=== PATIENT | female | born 1965 | race Caucasian/White ===

== ENCOUNTER 2021-04-24 15:35 | Inpatient (IN) | payer BC ==
[~2021-04-24] VITALS: Ht 162.6 cm; Wt 94.5 kg
[2021-04-24] MEDS ORDERED: ATEN50 PO (15:47)
[2021-04-24] MEDS ORDERED: SPIRONOLACTONE50 MG PO (15:47)
[2021-04-24] MEDS ORDERED: ATOR40TA PO (15:49)
[2021-04-24] MEDS ORDERED: LISI10 PO (15:49)
[2021-04-24] MEDS ORDERED: SYNTHROID75 MCG PO (15:49)
[2021-04-24 18:20] LABS: International Normalized Ratio 0.96; Prothrombin Time Results 10.4 Sec (9.7-11.5)
--- NOTE | 2021-04-24 20:40 | NUR ---
CARE ASSUMPTION PT PREVIOUSLY ADMITTED TO PCU @ APPROX 1800. THIS RN ASSUMING CARE FROM DAY SHIFT RN @ APPROX 1900. PT A&O X4. VSS. SPO2 > 92% ON RA. MONITOR SHOWS SR, HR 60's. PT DENIES CP, STATING "IT'S NOT A CHEST PAIN, IT's A SLIGHT PRESSURE, BUT IT's NOT BAD. IT's ONLY BAD WHEN THE CONTRACTIONS COME. IT's LIKE CHILD , BUT IN MY CHEST." PT STATES SHE WILL NOTIFY STAFF IF CP OR "CONTRACTIONS" RETURN. HEPARIN GTT & NS GTT INFUSING PER ORDERS.
[2021-04-25 01:17] LABS: BASOPHILS ABSOLUTE AUTO 0.09 K/mm3 (0.00-0.23); BASOPHILS PERCENT AUTO 1 % (0-2); EOSINOPHILS ABSOLUTE AUTO 0.09 K/mm3 (0.00-0.68); EOSINOPHILS PERCENT AUTO 1 % (0-6); Hematocrit 34.6 % (33.0-51.0); Hemoglobin 11.9 g/dL (11.5-16.0); IMMATURE GRAN ABSOLUTE AUTO 0.06 K/mm3 (0.00-0.10); IMMATURE GRAN PERCENT AUTO 1 % (0-1); LYMPHOCYTES ABSOLUTE AUTO 3.54 K/mm3 (0.84-5.20); LYMPHOCYTES PERCENT AUTO 38 % (21-46); MONOCYTES PERCENT AUTO 10 % (4-13); Mean Corpuscular HGB 33.7 pg (26.0-34.0); Mean Corpuscular HGB Conc 34.4 g/dL (31.5-36.5); Mean Corpuscular Volume 98 fL (80-100); NEUTROPHILS ABSOLUTE AUTO 4.71 K/mm3 (1.96-9.15); NEUTROPHILS PERCENT AUTO 50 % (41-73); Platelet Count 186 K/mm3 (150-400); RDW Standard Deviation 43.7 fL (35.1-46.3); Red Blood Cell Count 3.53 M/mm3 (3.80-5.20); White Blood Cell Count 9.39 K/mm3 (4.00-11.30)
[2021-04-25 01:42] LABS: Alanine Aminotransfer (ALT/SGP 35 U/L (12-78); Albumin, Blood 2.9 g/dL (3.4-5.0); Albumin/Globulin Ratio 0.9 (0.8-1.8); Alk Phos 50 U/L (50-136); Anion Gap 5 mmol/L (6-16); Aspartate Aminotrans (AST/SGOT 23 U/L (12-37); Bilirubin, Total 0.5 mg/dL (0.1-1.0); Blood Urea Nitrogen 19 mg/dL (8-24); CO2, Blood 27 mmol/L (21-32); Calcium, Blood 8.5 mg/dL (8.5-10.1); Chloride, Blood 106 mmol/L (98-108); Creatinine, Blood 0.83 mg/dL (0.40-1.00); Globulin, Blood 3.2 g/dL (2.2-4.0); Glomerular Filtration Rate >60 (60-); Glucose, Blood 136 mg/dL (70-99); Potassium, Blood 3.8 mmol/L (3.5-5.5); Sodium, Blood 138 mmol/L (136-145); Total Protein, Blood 6.1 g/dL (6.4-8.2)
--- NOTE | 2021-04-25 06:18 | NUR ---
SHIFT SUMMARY PT CONTINUES TO BE A&O X4. VSS. SPO2 > 92% ON RA. MONITOR SHOWS SB-SR, HR 50's-60's. PT DENIES CP T/O THIS SHIFT. PT NPO, AWAITING CARDIOLOGY CONSULT. HEPARIN GTT & NS GTT INFUSING PER ORDERS.
--- NOTE | 2021-04-25 12:57 | NUR ---
PATIENT ARRIVED BACK FROM FIRST PORTION OF TESTING. NO FOOD OR DRINK, INFORMED PATIENT OF ABOVE, AND SHE WILL AWAIT FOR SECOND PORTION OF TESTING AT APPROXIMATELY 1430. NO CONCERNS OR QUESTIONS AT THIS TIME.
--- NOTE | 2021-04-25 16:00 | NUR ---
Update 04/25/21: Pt. contact [facility] [phone]. No home health previously. No DME on file. [facility] PCP Dr. Sanders. Echo complete 04/24/21. Dr. Matamoros ordered cardiology consult. Review of Dr. Vickers's notes - NM stress test ordered. Hospital course pending stress test results. Will begin discharge planning and care coordination when appropriate.
--- NOTE | 2021-04-25 18:50 | NUR ---
SHIFT SUMMARY: ASSUMED CARE OF PATIENT ON 04/25/2021 0700, PATIENT HAD PERFORMED A MYCARDIAL PERFUSION STUDY. PATIENT HAS BEEN INDEPENEDENT WITH TOILETING. DENIES WORSENING CHEST PAIN, RATE HER TIGHTNESS AT 1, HEPARIN TO BE DRAWN THIS PM FOR ADJUSTMENT. DR. PENA TO COME IN THE MORNING AND GO OVER RESULTS OF TEST.
--- NOTE | 2021-04-26 06:05 | NUR ---
SHIFT SUMMARY PT IS A+OX4, PLEASANT AND COOPERATIVE TO CARE. VSS THROUGHOUT EVENING. HR NSR 60'S AND BP STABLE. PT DENIES ANY CHEST PAIN OR PRESSURE. INDEPENDENT WITH ADLS. HEPARIN DRIP INFUSING THROUGH LEFT A/C. WILL CONTINUE TO MONITOR TILL REPORT GIVEN
--- NOTE | 2021-04-26 07:17 | NUR ---
NURSING PCU DAYSHIFT: Assumed care of pt at approx 0700. A/O, pleasant, cooperative w/care. Ambulates independently and w/o difficulty. Denies any general pain. Skin is intact w/no noted breakdown. Tele in place, NSR, c/o mild chest pressure that does not worsen w/deep inspiration, SBP 140's, trace BLE edema. L/S cta t/o, O2 sat upper 90's on RA, denies dyspnea, no noted cough. Abd SNT, BT+, voiding w/o difficulty per pt. PIV x1 w/hep gtt infusing at 22.7 mls/hr (16u/kg/hr). Pt awaiting rounding from processor [employer]ellant and PMD. Expresses concern about events/testing resulting in hospitalization and what further plan of care will be. Denies any current needs or questions from primary staff. NPO at this time until seen by processor [employer]. Call light in reach, cont to monitor for changes.
--- NOTE | 2021-04-26 09:54 | NUR ---
[place] of care Received report from charge, RN Pt is a/o x 4 and sitting up in the chair in her room. Fresh water was brought in to the patient. Heparin gtt is running as ordered. Cardio is following the patient. Possible angio today, awaiting plan from the doctor. Pt is able to make her needs known and has her call light in reach.
[2021-04-26] MEDS ORDERED: METO50ER PO (15:22)
[2021-04-26] MEDS ORDERED: ST. JOSEPH ASPI81 MG PO (15:23)
--- NOTE | 2021-04-26 15:45 | NUR ---
Pt has been dcd home with her . Cardio came to see the patient as well as the hospitalist who put in th eorders for DC. Her meds were called into her pharmacy on file by the charge nurse. All meds and instructions were reviewed with the pt and all questions were answered. Pt was stable upon DC and has all of her personal belongings. [place] patient liason met with her and gave her her follow up information.
--- NOTE | 2021-04-27 17:29 | NUR ---
Update 04/26/21: Per chart review with Dr. Matamoros, pt. appropriate for discharge today. Reviewed discharge planning with pt. Denied concerns with safety or barriers to care at home. Pt. lives with who will be providing transportation and picking up medications. Denied any additional needs. Scheduled for hospital F/U on 05/02/21 at 11am with Lorrie LEARY. No further needs at this time.
== END 2021-04-26 15:43 | disposition home or self-care (01) | DRG 282 ==
LOC: ER 15:35 → PCU 17:14
PROVIDERS: ADMIT Internal Medicine
DX: I21.4 Non-ST elevation (NSTEMI) myocardial infarction (principal); I10 Essential (primary) hypertension; E78.5 Hyperlipidemia, unspecified; E66.01 Morbid (severe) obesity due to excess calories; E03.9 Hypothyroidism, unspecified; Z79.899 Other long term (current) drug therapy; R73.9 Hyperglycemia, unspecified; Z68.34 Body mass index [BMI] 34.0-34.9, adult
CPT/HCPCS: 36415; 78452; 80053; 83036; 83690; 84443; 84484; 85025; 85379; 85610; 85730; 93005; 93010; 93017; 93306; 99285; A9270; A9500; J0280; J1644; J2785; J7030

== ENCOUNTER 2021-11-06 12:49 | Day surgery (SDC) | payer BC ==
[~2021-11-06] VITALS: Ht 162.6 cm; Wt 90.6 kg
[~2021-11-06 12:49] MED LIST: ATEN50 PO; ATOR40TA PO; LISI10 PO; METO50ER PO; SPIRONOLACTONE50 MG PO; ST. JOSEPH ASPI81 MG PO; SYNTHROID75 MCG PO
[2021-11-06] MEDS ORDERED: Amlodipine Bes2.5 MG (13:18)
[2021-11-06] MEDS ORDERED: ATOR10 (13:26)
== END 2021-11-06 15:22 | disposition home or self-care (01) ==
LOC: ORSCSDS 12:49
PROVIDERS: Student in an Organized Health Care Education/Training Program
PROC: 0DBM8ZX Excision of Descending Colon, Via Natural or Artificial Opening Endoscopic, Diagnostic (ICD-10-PCS; principal; 2021-11-06 14:15)
PROC: 0DBN8ZX Excision of Sigmoid Colon, Via Natural or Artificial Opening Endoscopic, Diagnostic (ICD-10-PCS; principal; 2021-11-06 14:15)
PROC: 0DBL8ZX Excision of Transverse Colon, Via Natural or Artificial Opening Endoscopic, Diagnostic (ICD-10-PCS; principal; 2021-11-06 14:15)
DX: Z12.11 Encounter for screening for malignant neoplasm of colon (principal); Z86.010 Personal history of colon polyps; D12.3 Benign neoplasm of transverse colon; D12.4 Benign neoplasm of descending colon; D12.5 Benign neoplasm of sigmoid colon; I10 Essential (primary) hypertension; E78.5 Hyperlipidemia, unspecified; E03.9 Hypothyroidism, unspecified; Z87.891 Personal history of nicotine dependence; Z79.899 Other long term (current) drug therapy
CPT/HCPCS: 88305; J0330; J0461; J2405; J2704; J7120

== ENCOUNTER → 2022-11-08 | Outpatient (CLI) | payer BC ==
[~2022-11-08] MED LIST changes: +ATOR10; +Amlodipine Bes2.5 MG
[2022-11-13 15:11] LABS: HPV 16 Negative (Negative); HPV 18 Negative (Negative); HPV OTHER HR TYPES Negative (Negative)
== END ==
LOC: RAD SHORT 09:26
PROVIDERS: Family Medicine
DX: Z01.419 Encounter for gynecological examination (general) (routine) without abnormal findings (principal)
CPT/HCPCS: 87624; G0145

== ENCOUNTER 2023-04-02 07:10 | Day surgery (SDC) | payer BC ==
[~2023-04-02] VITALS: Ht 162.6 cm; Wt 87.2 kg
[2023-04-02] MEDS ORDERED: ATOR40TA PO (07:41)
[2023-04-02] MEDS ORDERED: LISI20 (07:42)
[2023-04-02] MEDS ORDERED: AMLODIPINE BESYL5 MG PO (07:44)
--- NOTE | 2023-04-02 07:53 | NUR ---
04/02/23 0753 Ximena Quezada 0737 1 DROP OF TETRACAINE ADMINISTERED TO THE R EYE, 0738 PLEDGET PLACED IN R EYE. PT TOLERATED WELL.
[2023-04-02 09:14] VITALS: BP 110/68
== END 2023-04-02 09:17 | disposition home or self-care (01) ==
LOC: ORSCSDS 07:10
PROVIDERS: Student in an Organized Health Care Education/Training Program
PROC: 08RJ3JZ Replacement of Right Lens with Synthetic Substitute, Percutaneous Approach (ICD-10-PCS; principal; 2023-04-02 08:30)
DX: H25.13 Age-related nuclear cataract, bilateral (principal); I10 Essential (primary) hypertension; E03.9 Hypothyroidism, unspecified; Z79.899 Other long term (current) drug therapy
CPT/HCPCS: J2001; J2250; J3010; J7040; V2632

== ENCOUNTER 2023-04-09 09:58 | Day surgery (SDC) | payer BC ==
[~2023-04-09] VITALS: Ht 162.6 cm; Wt 86.9 kg
[~2023-04-09 09:58] MED LIST changes: +AMLODIPINE BESYL5 MG PO; +LISI20
--- NOTE | 2023-04-09 10:46 | NUR ---
04/09/23 1046 Ximena Quezada 1 DROP OF TETRACAINE ADMINISTERED TO THE L EYE 1041, PLEDGET PLACED IN L EYE AT 1042
[2023-04-09 12:19] VITALS: BP 105/67
== END 2023-04-09 12:29 | disposition home or self-care (01) ==
LOC: ORSCSDS 09:58
PROVIDERS: Student in an Organized Health Care Education/Training Program
PROC: 08RK3JZ Replacement of Left Lens with Synthetic Substitute, Percutaneous Approach (ICD-10-PCS; principal; 2023-04-09 11:30)
DX: H25.12 Age-related nuclear cataract, left eye (principal); Z96.1 Presence of intraocular lens; H52.202 Unspecified astigmatism, left eye; I10 Essential (primary) hypertension; G47.33 Obstructive sleep apnea (adult) (pediatric); E03.9 Hypothyroidism, unspecified; E78.00 Pure hypercholesterolemia, unspecified; Z79.899 Other long term (current) drug therapy; Z86.16 Personal history of COVID-19
CPT/HCPCS: J2250; J3010; J7040; V2632

== ENCOUNTER 2024-11-11 08:18 | Day surgery (SDC) | payer BC ==
[~2024-11-11] VITALS: Ht 162.6 cm; Wt 82.2 kg
[2024-11-11] MEDS ORDERED: Lactated Ringer's 1,000 ML IV ONE ×2 (09:07→09:26)
[2024-11-11] MEDS ORDERED: propofoL 50 ML IV ONE ×2 (09:26→10:18)
[2024-11-11 10:53] VITALS: BP 100/62
== END 2024-11-11 10:52 | disposition home or self-care (01) ==
LOC: ORSCSDS 08:18
PROVIDERS: Internal Medicine Gastroenterology
PROC: 0DBK8ZX Excision of Ascending Colon, Via Natural or Artificial Opening Endoscopic, Diagnostic (ICD-10-PCS; principal; 2024-11-11 09:45)
PROC: 0DBM8ZX Excision of Descending Colon, Via Natural or Artificial Opening Endoscopic, Diagnostic (ICD-10-PCS; principal; 2024-11-11 09:45)
DX: Z12.11 Encounter for screening for malignant neoplasm of colon (principal); Z86.0101 Personal history of adenomatous and serrated colon polyps; D12.2 Benign neoplasm of ascending colon; D12.4 Benign neoplasm of descending colon; E78.5 Hyperlipidemia, unspecified; I10 Essential (primary) hypertension; G47.33 Obstructive sleep apnea (adult) (pediatric); E03.9 Hypothyroidism, unspecified; I25.2 Old myocardial infarction; I25.10 Atherosclerotic heart disease of native coronary artery without angina pectoris; Z87.891 Personal history of nicotine dependence; Z79.899 Other long term (current) drug therapy
CPT/HCPCS: 88305; J2704; J7120